=== PATIENT | female | born 1990 | race Caucasian/White ===

== ENCOUNTER 2024-11-09 05:27 | Inpatient (IN) ==
--- NOTE | 2024-10-30 15:04 | Anesthesiology Consultation ---
Date of Service October 30, 2024 Assessment & Plan (1) Encounter for pre-operative examination: Infectious disease screening: Per assessment on 10/30/24- No known recent infectious disease contacts or current infectious disease symptoms. 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 Surgery Operation Date: 11/09/24 07:30 Proposed Procedures p Section (Delivery of Baby Through Abdominal Incision) - Naomi Bocanegra MD Height/Weight Height: 5 ft 4 in Weight: 117.934 kg Allergies Allergy/AdvReac Type Severity Reaction Status Date / Time No Known Allergies Allergy Verified 10/30/24 14:34 Medications Home Medications Medication Instructions Recorded Confirmed Last Taken 21-iron fu-folic acid 2 tab PO BID 05/03/24 10/30/24 Unknown [ Complete] pen needle, diabetic 32 gauge x #100 ea 08/10/24 10/24/24 Unknown /32" (BD Jane 2nd Gen Pen Needle) insulin NPH isoph U-100 human 100 60 unit (0.6 mL) subcut QPM #18 mL 10/24/24 10/30/24 Unknown unit/mL (3 mL) subcutaneous pen (Novolin N FlexPen) insulin regular human 100 unit/mL 14 unit subcut UD 10/30/24 10/30/24 Unknown (3 mL) subcutaneous pen (Novolin R FlexPen) labetalol 100 mg tablet 50 mg PO BID 10/30/24 10/30/24 Unknown Past Medical History Medical History History of asthma History of chicken pox As child History of hypertension Insulin controlled gestational diabetes mellitus (GDM) during Past Family History Family History Denies family history of Ovarian cancer Breast cancer Colorectal cancer Past Surgical History Surgical History S/P section x1 S/P hernia surgery umbilical Social History Smoking Status: Never smoker Do You Dip or Chew Tobacco: No Hx Alcohol Use: No Hx Substance Use: No substance use type: does not use
[2024-11-09] MEDS ORDERED: SODIUM CHLORIDE 0.9% 100 ML IV PRN (05:44)
[2024-11-09] MEDS: ACETAMINOPHEN 500 MG TAB PO SCH (06:12)
[2024-11-09 06:19] LABS: Basophils # (auto) 0.04 K/uL (0.00-0.20); Basophils % (auto) 0.4 %; Eosinophils # (auto) 0.15 K/uL (0.00-0.50); Eosinophils % (auto) 1.6 %; Hematocrit (blood only) 33.9 % (37.0-47.0); Hemoglobin 11.5 g/dl (12.0-16.0); Immature Granulocytes # (auto) 0.05 K/uL (0.01-0.20); Immature Granulocytes % (auto) 0.5 %; Lymphocytes # (auto) 2.54 K/uL (1.20-3.40); Lymphocytes % (auto) 26.4 %; Mean Corpuscular Hemoglobin 29.6 pg (25.0-34.0); Mean Corpuscular Hgb Conc 33.9 g/dL (32.0-36.0); Mean Corpuscular Volume 87.1 fL (80.0-100.0); Mean Platelet Volume 10.2 fL (9.4-12.4); Monocytes # (auto) 0.66 K/uL (0.11-0.59); Monocytes % (auto) 6.9 %; Neutrophils # (auto) 6.18 K/uL (1.40-6.50); Neutrophils % (auto) 64.2 %; Platelet Count 306 K/uL (130-400); RDW Coefficient of Variation 13.1 % (11.5-14.5); RDW Standard Deviation 41.2 fL (36.4-46.3); Red Blood Count 3.89 M/uL (4.20-5.40); White Blood Count 9.62 K/ul (4.8-10.8)
[2024-11-09] MEDS: LACTATED RINGER'S 1,000 ML IV SCH ×2 (06:57→09:15)
[2024-11-09] MEDS ORDERED: OXYTOCIN 10 UNITS/ML VIAL ONE (06:58)
[2024-11-09] MEDS ORDERED: ONDANSETRON INJ 2 MG/ML 2 ML VIAL ONE (06:58)
[2024-11-09] MEDS ORDERED: DEXAMETHASONE SOD INJ 4 MG/ML VIAL ONE (06:58)
[2024-11-09] MEDS ORDERED: MoRPHine SULFATE PF 1 MG/ML 10 ML AMP/VIAL ONE (06:59)
[2024-11-09] MEDS ORDERED: PHENYLEPHRINE HCL 25 MG/250 ML NSS IV ONE (06:59)
[2024-11-09] MEDS ORDERED: fentaNYL citrate PF 100 MCG/2 ML VIAL ONE (06:59)
[2024-11-09] MEDS ORDERED: ePHEDrine sulfate 50 MG/ML AMP IV PRN (07:18)
[2024-11-09] MEDS ORDERED: NALBUPHINE HCL INJ 10 MG/ML AMP IV PRN (07:18)
[2024-11-09] MEDS ORDERED: MoRPHine SULFATE PF 1 MG/ML 10 ML AMP/VIAL INT SPINAL ONE (07:18)
[2024-11-09] MEDS ORDERED: NALOXONE HCL 0.08 MG in SYRINGE 1.8 ML IV PRN (07:18)
[2024-11-09] MEDS ORDERED: diphenhydrAMINE 50 MG/ML VIAL IV PRN (07:18)
[2024-11-09] MEDS ORDERED: NALOXONE HCL 1 MG in SODIUM CHLORIDE 0.9% 1,000 ML IV PRN (07:18)
[2024-11-09] MEDS ORDERED: NALOXONE HCL 0.4 MG/1 ML VIAL/CARP IV PRN (07:18)
[2024-11-09] MEDS ORDERED: ONDANSETRON INJ 2 MG/ML 2 ML VIAL IV PRN (07:18)
[2024-11-09] MEDS ORDERED: HYDROmorphone INJ 0.5 MG/0.5 ML SYR IV PRN (07:18)
[2024-11-09] MEDS ORDERED: MoRPHine SULFATE 2 MG/ML CARP IV PRN (07:18)
[2024-11-09] MEDS: CITRIC ACID/SODIUM CITRATE 15 ML UDC PO SCH (07:20)
--- NOTE | 2024-11-09 07:22 | History & Physical Bridge Note ---
Date of Service November 09, 2024 History & Physical Bridge Note I have examined the patient, reviewed the History & Physical and in the interval since the performance of the History & Physical I have noted the following changes of clinical significance: no changes noted
[2024-11-09] MEDS: ceFAZolin 3000MG 3,000 MG/72.5 ML BAG IV SCH (07:29)
[2024-11-09] MEDS ORDERED: DC INTRASPINAL MORPHINE SCH (07:30)
[2024-11-09] MEDS ORDERED: NO NARCOTICS OR SEDATIVES SCH (07:30)
--- NOTE | 2024-11-09 08:31 | Operative Report ---
PG Post Operative Report Pre & Post Diagnosis Operation Date: 11/09/24 07:30 Pre-Op Diagnosis: History of Section, Chronic Hypertension, Obesity, AMA, GBS positive Post-Op Diagnosis: Same I identified the patient and participated in the time-out.: Yes Procedure Operation Date: 11/09/24 07:30 Actual Procedures Low Transverse Repeat Section - Naomi Bocanegra MD Surgeon Naomi Bocanegra MD Assistant Chief Engineer Kimberly Estimated Blood Loss 219 Findings Consistent with Post-Op Diagnosis Specimens placenta, cord blood Anesthesia Type Spinal Complications none Disposition Accompanied Patient To Recovery: Yes Disposition: L&D Description of Procedure The patient was placed operating table in the supine position with a leftward tilt. She was prepped and draped in standard sterile fashion. The anesthetic was tested and found to be adequate. A time-out was held, identifying correct patient, procedure, positioning and preoperative antibiotics. There were no concerns. A Pfannenstiel skin incision was made with a knife and taken down to the underlying layer of fascia. The fascia was incised in the midline with the knife and taken out laterally with scissors. Of note, there was a roughly 2" long hernia in the line of the prior fascial incision, just R of midline. This was incorporated into the fascial opening, reducing the hernia sac back into the abdominal cavity, such that closure today will repair that hernia. The superior edge of the fascial incision was grasped, elevated and dissected off the underlying rectus both superiorly and inferiorly. The muscles were bluntly in the midline. The peritoneum was entered bluntly. The incision was then stretched. The Johnathan O-Ring and bladder retractor was placed. The vesicouterine peritoneum was identified, entered with scissors and taken out laterally with scissors. The bladder flap was created digitally. A hysterotomy incision was created transversely in the lower uterine segment, final entry being accomplished in a blunt manner with the washing tub operator's fingers. Clear amniotic fluid was encountered. The washing tub operator's hand was used to elevate the head to the hysterotomy. A Kiwi-Cup vacuum was applied. The head was delivered using mild fundal pressure, and the shoulders and body followed without difficulty. Kiwi cup was removed. The cord was clamped and cut and the was then handed off to the awaiting vacuum applicator operator. Cord blood was obtained. The placenta was Manually extracted. The uterus was cleared of all clot and debris with moistened laparotomy sponges. The hysterotomy incision was repaired in two layers, the first in a running locked layer, the second in an imbricating layer. The gutters were cleared of clot and debris. A final inspection of the hysterotomy revealed good hemostasis. The rectus muscles were allowed to reapproximate naturally. The fascia was then reapproximated with 1 Vicryl in a running nonlocked manner. The fascia was examined and found to be free of de fect following closure. The subcutaneous tissue was copiously irrigated and reapproximated with 0-chromic, then the skin edges were closed with 4-0 monocryl in a subcuticular fashion. A NENA dressing was applied. The manjarrez was found to be draining clear yellow urine at completion of the procedure. I attest to the content of the Intraoperative Record and any orders documented therein. Any exceptions are noted below. I attest to the content of the Intraoperative Record and any orders documented therein. Any exceptions are noted below. OB Procedure Charges 60668
[2024-11-09] MEDS ORDERED: CALCIUM CARBONATE 500 MG CHEWABLE TAB PO PRN (08:55)
[2024-11-09] MEDS ORDERED: HYDROCORTISONE ACETATE 25 MG SUPP PR PRN (08:55)
[2024-11-09] MEDS ORDERED: DIPHTHER/TETAN/PERTUS Vaccine (Tdap, Adol/Adult) 0.5mL IM ONE (08:55)
[2024-11-09] MEDS ORDERED: SENNA 8.6 MG TAB PO PRN (08:55)
[2024-11-09] MEDS ORDERED: LACTATED RINGER'S 1,000 ML IV SCH (08:55)
[2024-11-09] MEDS ORDERED: BENZOCAINE 20% SPRY 85 APPLN/85 GM CAN EXT PRN (08:55)
[2024-11-09] MEDS ORDERED: MAGNESIUM HYDROXIDE SUSP 30 ML UDC PO PRN (08:55)
[2024-11-09] MEDS: OXYTOCIN 20 UNITS/1002ML LR IV ONE (08:56)
[2024-11-09] MEDS: KETOROLAC 30 MG/ML VIAL IV SCH (09:33)
--- NOTE | 2024-11-09 10:01 | Anesthesiology Progress Note ---
Date of Service November 09, 2024 Anesthesia Post Procedure Vital Signs Vital Signs: Temp Pulse Resp BP Pulse Ox 11/09/24 09:57 67 99 11/09/24 09:52 75 99 11/09/24 09:51 67 146/67 H 11/09/24 09:47 73 99 11/09/24 09:42 69 98 11/09/24 09:41 62 135/64 11/09/24 09:37 20 11/09/24 09:37 69 98 11/09/24 09:32 73 98 11/09/24 09:31 72 114/57 L 11/09/24 09:27 63 96 11/09/24 09:22 62 98 11/09/24 09:20 17 11/09/24 09:20 64 106/53 L 11/09/24 09:17 66 128/52 L 97 11/09/24 09:14 67 91/47 L 11/09/24 09:12 97 11/09/24 09:12 62 11/09/24 09:12 65 84/44 L 11/09/24 09:10 16 11/09/24 09:10 64 88/42 L 11/09/24 09:07 68 97 11/09/24 09:02 66 96 11/09/24 09:00 17 11/09/24 09:00 65 101/54 L 11/09/24 08:57 62 97 11/09/24 08:52 72 97 11/09/24 08:51 62 103/55 L 11/09/24 08:50 17 11/09/24 08:47 67 97 11/09/24 08:43 69 93 11/09/24 08:42 73 97 11/09/24 08:40 36.4 C L 16 11/09/24 08:38 66 109/58 L 11/09/24 08:37 71 96 11/09/24 05:51 77 139/83 11/09/24 05:47 36.7 C 18 Transfer of Care Handoff Completed per policy Notes Mental Status: alert / awake / arousable and participated in evaluation Patient Amnestic to Procedure: Yes Nausea / Vomiting: adequately controlled Pain: adequately controlled Airway Patency, RR, SpO2: stable & adequate BP & HR: stable & adequate Hydration State: stable & adequate Neuraxial Anesthesia: was administered and sensory block is resolving Anesthetic Complications: no major complications apparent and Pt Satisfied with anesthetic care
[2024-11-09] MEDS: LABETALOL HCL 100 MG TAB PO SCH ×2 (12:07→15:56)
[2024-11-09] MEDS: SIMETHICONE 80 MG CHEW PO SCH (12:48)
[2024-11-09] MEDS ORDERED: Nursing to Pharmacy Communication SCH (13:45)
[2024-11-09] MEDS: ACETAMINOPHEN 325 MG TAB PO SCH (15:21)
[2024-11-09] MEDS: OXYTOCIN 20 UNITS/LR 1,002 ML IV SCH (18:47)
[2024-11-09] MEDS: DOCUSATE SODIUM 100 MG CAP PO SCH (21:14)
[2024-11-10] MEDS ORDERED: diphenhydrAMINE Capsule 25 MG CAP PO PRN (01:19)
[2024-11-10] MEDS ORDERED: diphenhydrAMINE 50 MG/ML VIAL IV PRN (01:19)
[2024-11-10] MEDS ORDERED: oxyCODONE HCL IR 5 MG TAB (IMMEDIATE RELEASE) PO PRN (01:19)
[2024-11-10] MEDS ORDERED: HYDROmorphone INJ 0.5 MG/0.5 ML SYR IV PRN (01:19)
[2024-11-10] MEDS ORDERED: PROMETHAZINE 12.5 MG/50.5 ML BAG IV PRN (01:19)
[2024-11-10] MEDS ORDERED: ONDANSETRON INJ 2 MG/ML 2 ML VIAL IV PRN (01:19)
[2024-11-10 06:27] LABS: Basophils # (auto) 0.04 K/uL (0.00-0.20); Basophils % (auto) 0.4 %; Eosinophils % (auto) 3.1 %; Hematocrit (blood only) 33.3 % (37.0-47.0); Hemoglobin 11.4 g/dl (12.0-16.0); Immature Granulocytes # (auto) 0.04 K/uL (0.01-0.20); Immature Granulocytes % (auto) 0.4 %; Lymphocytes # (auto) 2.11 K/uL (1.20-3.40); Lymphocytes % (auto) 21.8 %; Mean Corpuscular Hemoglobin 30.3 pg (25.0-34.0); Mean Corpuscular Hgb Conc 34.2 g/dL (32.0-36.0); Mean Corpuscular Volume 88.6 fL (80.0-100.0); Mean Platelet Volume 10.6 fL (9.4-12.4); Monocytes # (auto) 0.57 K/uL (0.11-0.59); Monocytes % (auto) 5.9 %; Neutrophils # (auto) 6.62 K/uL (1.40-6.50); Neutrophils % (auto) 68.4 %; Platelet Count 316 K/uL (130-400); RDW Coefficient of Variation 13.1 % (11.5-14.5); RDW Standard Deviation 42.2 fL (36.4-46.3); Red Blood Count 3.76 M/uL (4.20-5.40); White Blood Count 9.68 K/ul (4.8-10.8)
--- NOTE | 2024-11-10 07:12 | Obstetrical Progress Note ---
Date of Service November 10, 2024 Assessment & Plan (1) delivery delivered: Plan 34 years at 38+2 week POG. #1POD following Delivery Both mom and baby doing well. They want to go home today. Discharge today. Follow up after 1 week for dressing removal and 6 weeks for visit. Admission and Anticipated Discharge Date Admission Date: November 09, 2024 Supervising Physician Co-Signing Physician Notes Resident Physician Supervision Note: I interviewed and examined the patient. Discussed with Dr. Cantor and agree with findings and plan as documented in the note. Any exceptions or clarifications are listed here: [ ] Documented By: Naomi Bocanegra MD, FACOG Subjective 34years at 38+2 week POG. #1POD following delivery No active complains Both mom and baby doing well. Mom Lying comfortable on bed. Pain: Mild, intermittent, manageable on painkillers. Lochia: Moderate Diet: Regular OB diet Gas: Aware of passing, but no abdominal distension Peeing: Passed Urine after manjarrez's removal Ambulation: to Bathroom/ Corridor without any complication Answered her queries. Review of Systems Review of Systems: As per HPI Physical Exam Physical Exam: General: Alert and oriented. No acute distress. CVS: S1 S2+ No murmurs, regular rhythm. Respiratory: CTA bilaterally. No rhonchi, wheezes, or crackles. No increased work of breathing. Abdomen: Bowel sound +. Soft, nontender Uterus: Fundus firm and palpable few cm below the umbilicus. Incision site looks healthy: Dry, No swelling, Erythema Lower extremities: No LE edema. No deep calf pain. Results & Data Vital Signs (Past 12 Hours) Vital Signs Temp Pulse Resp BP Pulse Ox O2 Del Method 11/10/24 03:02 37 C 79 16 143/85 H 96 Room Air 11/10/24 01:10 16 94 11/10/24 00:01 16 95 11/09/24 23:50 16 95 11/09/24 23:02 36.8 C 85 18 127/79 95 Room Air 11/09/24 22:30 16 95 11/09/24 21:45 16 96 11/09/24 20:30 16 94 11/09/24 19:53 16 96 11/09/24 19:30 16 94 03/27/25 19:30 Room Air Resident Activity Tracking Resident Involvement: Resident Care Provided Care Provided: OB Delivery
[2024-11-10] MEDS: PRENATAL VITAMIN 1 TAB PO SCH (07:54)
[2024-11-10] MEDS: FERROUS SULFATE 325 MG TAB PO SCH (07:54)
[2024-11-10 08:37] VITALS: TEMP 97.9
[2024-11-10] MEDS: IBUPROFEN 600 MG TAB PO SCH (08:52)
[2024-11-10] MEDS ORDERED: KETOROLAC 30 MG/ML VIAL IV PRN (09:00)
[2024-11-10 12:20] VITALS: BP 141/84; PULSE 77; RESP 19; O2SAT 98
[2024-11-10] MEDS ORDERED: bisacodyL 5 MG TABEC PO SCH (20:00)
[2024-11-11] MEDS ORDERED: IBUPROFEN 600 MG TAB PO PRN (08:39)
[2024-11-11] MEDS ORDERED: bisacodyL 10 MG SUPP PR PRN (08:39)
[2024-11-11] MEDS ORDERED: ACETAMINOPHEN 325 MG TAB PO PRN (14:39)
== END 2024-11-10 14:52 | disposition home or self-care (01) | DRG 787 ==
LOC: 4S1 05:27 → EDSTATUS 07:30 → 4E2 11:20